=== PATIENT | female | born 1960 | race Caucasian/White ===

== ENCOUNTER 2019-09-14 12:31 | Outpatient (CLI) | payer MEDICARE, MEDICAID, SELFPAY ==
--- NOTE | ~2019-09-14 | MM_ITS ---
CORRECTED REPORT ORDER CHANGED TO MM screening mammo w miguelina [place]18/[place] [facility] [place] MM screening mammo BI w miguelina HISTORY: Screening mammogram TECHNIQUE: Craniocaudal and mediolateral oblique 3-D tomosynthesis images were obtained and synthetic 2-D images were generated. CAD analysis was submitted and interpreted. COMPARISON: 07/30/2016 BREAST PARENCHYMAL COMPOSITION: There are scattered areas of fibroglandular density. FINDINGS: There is no evidence of suspicious mass, calcification, or architectural distortion to suggest malignancy in either breast. There has been no suspicious interval change. IMPRESSION: 1. No mammographic evidence of malignancy. 2. Recommend routine screening mammography in one year. BI-RADS Category 1: Negative Reviewed, dictated and finalized at location A. ANDS TECHNICIAN MTDD
[2019-09-14 14:24] LABS: Thyroid Stimulating Hormone 17.62 uIU/mL (0.36-3.74)
== END 2019-09-14 12:32 | disposition home or self-care (01) ==
LOC: CHSIMG 12:33
PROVIDERS: PCP Nurse Practitioner Family; Visit Provider Nurse Practitioner Family
DX: Z12.31 Encounter for screening mammogram for malignant neoplasm of breast (principal); E03.9 Hypothyroidism, unspecified
CPT/HCPCS: 36415; 77063; 77067; 84443

== ENCOUNTER 2019-10-27 13:29 | Outpatient (CLI) | payer MEDICARE, MEDICAID, SELFPAY ==
--- NOTE | ~2019-10-27 | XR_ITS ---
EXAMINATION: XR chest 2V DATE: 10/27/2019 13:55 INDICATION: Cough. TECHNIQUE: Frontal and lateral views of the chest were obtained. COMPARISON: Chest 2 views 01/11/2018 FINDINGS: The chest demonstrates clear lungs without pneumonia, pleural effusion, or pneumothorax. Th e heart size is normal. Calcified right hilar lymph nodes are consistent with old granulomatous disea se. Surgical clips in the right upper quadrant are likely from cholecystectomy. IMPRESSION: 1. No acute cardiopulmonary disease. Reviewed, dictated and finalized at location A.
== END 2019-10-27 13:30 | disposition home or self-care (01) ==
LOC: CHSIMG 13:32
PROVIDERS: PCP Nurse Practitioner Family; Visit Provider Nurse Practitioner Family
DX: R05 Cough (principal)
CPT/HCPCS: 71046

== ENCOUNTER 2020-12-01 12:05 | Emergency (ER) | payer MEDICARE, SELFPAY ==
[2020-12-01 12:27] VITALS: BP 96/65; PULSE 98; RESP 20; TEMP 36.4; O2SAT 92
--- NOTE | 2020-12-01 13:28 | PC.NURSE ---
1300 went to pts room to go over her medications with her and she had left the room and has not returned
--- NOTE | 2020-12-02 04:22 | ED.GENADULT ---
HPI - General Adult General Chief complaint: Unspecified Stated complaint: high BP Related Data Allergies Allergy/AdvReac Type Severity Reaction Status Date / Time No Known Allergies Allergy Verified 12/03/20 08:59 [facility] Past Medical History Medical History COPD exacerbation Cough present for greater than 3 weeks Encounter for screening mammogram for malignant neoplasm of breast Hepatitis C Hypertension Hypothyroidism Nausea Nicotine dependence Suicide attempt by cutting of wrist Yeast infection Surgical History Surgical History History of cholecystectomy Previous back surgery Social History Social History Smoking packs per day: 1 Smoking cigarettes per day: 20.0 Years smoked: 42 Smoking pack-years: 42.00 Smoking status: Current every day smoker Alcohol intake: current Substance use: never Substance use type: does not use Other substance usage details: history of Gender identity (if verbalized by the patient): Female Course Vital Signs Vital signs: Vital Signs Temperature 36.4 C 12/01/20 12:27 Pulse Rate 98 12/01/20 12:27 Respiratory Rate 20 12/01/20 12:27 Blood Pressure 96/65 L 12/01/20 12:27 Pulse Oximetry 92 12/01/20 12:27 Temperature 36.4 C 12/01/20 12:27 Pulse Rate 98 12/01/20 12:27 Respiratory Rate 20 12/01/20 12:27 Blood Pressure 96/65 L 12/01/20 12:27 Pulse Oximetry 92 12/01/20 12:27 Medical Decision Making Vital Signs Vital Signs: Vital Signs Temperature 36.4 C 12/01/20 12:27 Pulse Rate 98 12/01/20 12:27 Respiratory Rate 20 12/01/20 12:27 Blood Pressure 96/65 L 12/01/20 12:27 Pulse Oximetry 92 12/01/20 12:27 Temperature 36.4 C 12/01/20 12:27 Pulse Rate 98 12/01/20 12:27 Respiratory Rate 20 12/01/20 12:27 Blood Pressure 96/65 L 12/01/20 12:27 Pulse Oximetry 92 12/01/20 12:27 Discharge Plan Discharge Patient Disposition: Left Without Being Seen Prescriptions: No Action albuterol sulfate 90 mcg/actuation HFA aerosol inhaler 1 puff INHALATION Q8H PRN (Reason: shortness of breath or wheezing) Qty: 8.5 RF: 2 amlodipine 10 mg tablet 10 mg PO DAILY Qty: 90 RF: 0 levothyroxine 125 mcg tablet 125 mcg PO DAILY Qty: 30 RF: 0 prazosin 2 mg capsule 2 mg PO QPM Qty: 30 RF: 1 quetiapine 100 mg tablet See Rx Instructions .ROUTE .COMPLEX Qty: 30 RF: 2 sertraline 50 mg tablet 50 mg PO DAILY Qty: 30 RF: 0 clobetasol 0.05 % cream 1 applic topical BID 28 Days Qty: 60 RF: 0 Follow-up/Referrals: Bette Wilder NP [Primary Care Provider] -
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
== END 2020-12-01 13:01 | disposition left against medical advice (07) ==
PROVIDERS: Emergency Provider Emergency Medicine; PCP Nurse Practitioner Family
DX: Z53.8 Procedure and treatment not carried out for other reasons (principal)
CPT/HCPCS: 99199

== ENCOUNTER 2020-12-01 18:09 | Emergency (ER) | payer MEDICARE, SELFPAY ==
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
== END 2020-12-01 18:30 | disposition left against medical advice (07) ==
PROVIDERS: Emergency Provider Emergency Medicine; PCP Nurse Practitioner Family
DX: Z53.8 Procedure and treatment not carried out for other reasons (principal)
CPT/HCPCS: 99199

== ENCOUNTER 2022-05-20 10:06 | Outpatient (CLI) | payer MEDICARE, MEDICAID, SELFPAY ==
--- NOTE | ~2022-05-20 | XR_ITS ---
EXAMINATION: XR lumbar spine 2-3V DATE: 05/20/2022 10:49 INDICATION: Low back pain TECHNIQUE: Anteroposterior and lateral views of the lumbar spine, and cone-down lateral view of the l umbosacral junction were obtained. COMPARISON: 12/11/2017 FINDINGS: Alignment is normal. Vertebral body heights are normal. Mild lower lumbar facet osteoarthritis. Sacru m and bilateral sacral iliac joints are unremarkable. Cholecystectomy clips in right upper quadrant. Lung bases are clear. Normal bowel gas pattern. IMPRESSION: 1. Mild lower lumbar facet osteoarthritis. Reviewed, dictated and finalized at location B.
[2022-05-20 10:27] LABS: Basophils Absolute Auto 0.09 K/mm3 (0.00-0.10); Basophils Percent Auto 1.1 % (0.0-1.0); Eosinophils Absolute Auto 0.76 K/mm3 (0.02-0.50); Eosinophils Percent Auto 9.3 % (1.0-6.0); Hematocrit 38.7 % (35.0-49.0); Hemoglobin 12.6 g/dL (12.0-15.0); Immature Granulocyte Absolute 0.05 K/mm3 (0.00-0.00); Immature Granulocyte Percent A 0.6 % (0.0-0.0); Lymphocytes Absolute Auto 2.99 K/mm3 (1.10-4.50); Lymphocytes Percent Auto 36.8 % (18.0-42.0); Mean Corpuscular HGB Conc 32.6 g/dL (32.0-36.0); Mean Corpuscular Hemoglobin 31.3 pg (27.0-31.0); Mean Platelet Volume 9.4 fl (9.2-11.8); Monocytes Absolute Auto 0.56 K/mm3 (0.10-0.90); Monocytes Percent Auto 6.9 % (2.0-11.0); Neutrophils Absolute Auto 3.7 K/mm3 (1.7-7.2); Neutrophils Percent Auto 45.3 % (50.0-70.0); Platelet Count Result 258 K/mm3 (150-420); Red Blood Count 4.03 M/mm3 (4.20-5.40); Red Cell Distribution Width 13.9 % (11.6-14.4); White Blood Count 8.1 K/mm3 (4.8-10.8)
[2022-05-20 10:50] LABS: Alanine Aminotransferase 54 U/L (14-59); Alkaline Phosphatase 64 U/L (46-116); Anion Gap 5 mmol/L (8-16); Aspartate Amino Transferase 38 U/L (15-37); Bilirubin,Total 0.3 mg/dL (0.00-1.00); Blood Urea Nitrogen 21 mg/dL (7-18); Calcium 9.5 mg/dL (8.5-10.1); Carbon Dioxide 34 mmol/L (21-32); Chloride 100 mmol/L (98-108); Cholesterol 369 mg/dL (0-200); Estimated Glomerular Filt Rate 39; Free T4 Free Thyroxine 0.28 ng/dL (0.76-1.46); Glucose 118 mg/dL (70-99); HDL Direct 54 mg/dL (40-60); LDL Cholesterol Calculated 254 mg/dL (<130); Osmolality Calculated 292 mOsm/kg (285-295); Potassium 4.2 mmol/L (3.5-5.1); Sodium 139 mmol/L (136-145); Total Protein 7.4 g/dL (6.4-8.2); Triglycerides 305 mg/dL (0-150)
[2022-05-20 11:11] LABS: Thyroid Stimulating Hormone 84.18 uIU/mL (0.36-3.74)
== END 2022-05-20 10:07 | disposition home or self-care (01) ==
LOC: CHSLAB 10:10
PROVIDERS: PCP Nurse Practitioner Family; Visit Provider Nurse Practitioner Family
DX: M54.50 Low back pain, unspecified (principal); I10 Essential (primary) hypertension; E03.9 Hypothyroidism, unspecified; E78.5 Hyperlipidemia, unspecified
CPT/HCPCS: 36415; 72100; 80053; 80061; 84439; 84443; 85025

== ENCOUNTER 2022-10-19 14:04 | Outpatient (CLI) | payer MEDICARE, MEDICAID, SELFPAY ==
--- NOTE | ~2022-10-19 | XR_ITS ---
EXAM: XR elbow LT 2V DATE: 10/19/2022 14:26 HISTORY: pain laterally x 3mo dixie with lifting objects . COMPARISON: None available. FINDINGS: Normal mineralization. No fracture or dislocation. No lytic or blastic lesion. Joint space s and physes are maintained. No erosion or periosteal change. Soft tissues within normal limits. IMPRESSION: Normal right elbow radiograph findings. Reviewed, dictated and finalized at location K.
== END 2022-10-19 14:05 | disposition home or self-care (01) ==
LOC: CHSIMG 14:06
PROVIDERS: PCP Family Medicine; Visit Provider Family Medicine
DX: M25.522 Pain in left elbow (principal)
CPT/HCPCS: 73070

== ENCOUNTER 2022-11-17 12:54 | Outpatient (RCR) | payer MEDICARE, MEDICAID, SELFPAY | END 2023-02-15 23:59 | disposition home or self-care (01) | LOC: CHSPT 12:54 | PROVIDERS: PCP Nurse Practitioner Family; Visit Provider Nurse Practitioner Family | DX: M54.50 Low back pain, unspecified (principal); M25.522 Pain in left elbow | CPT/HCPCS: 99199 ==

== ENCOUNTER 2023-03-15 10:39 | Outpatient (CLI) | payer MEDICARE, MEDICAID, SELFPAY ==
--- NOTE | ~2023-03-15 | XR_ITS ---
XR heel RT min 2V DATE: 03/15/2023 11:05 INDICATION: Right heel pain for one month TECHNIQUE: Axial and lateral views COMPARISON: None FINDINGS: There is mild plantar and moderate posterior calcaneal enthesopathy, without erosive change or periostitis. No fracture or dislocation or bone destruction. IMPRESSION: Plantar and posterior calcaneal enthesopathy Reviewed, dictated and finalized at location B.
--- NOTE | ~2023-03-15 | XR_ITS ---
XR lumbar spine 2-3V DATE: 03/15/2023 11:06 INDICATION: Chronic low back pain TECHNIQUE: AP, lateral, cone-down lateral lumbosacral views COMPARISON: 05/20/2022 lumbar spine FINDINGS: There is diffuse osteopenia. Normal alignment of the lumbar spine. No fracture or bone destruction or spondylolisthesis. The inclu ded lower thoracic and lumbar pedicles are intact. There is degenerative spurring of the lower thorac ic spine. There is minimal degenerative spurring of the lumbar spine. Lumbar interspaces are well pre served. Mild loss of height at L5-S1 interspace. The sacroiliac joints are intact. Status post cholecystectomy. IMPRESSION: Degenerative spurring of lower thoracic spine Minimal degenerative spurring of the lumbar spine and mild loss of height at L5-S1 interspace No significant change since 05/20/2022 Reviewed, dictated and finalized at location B. IMPRESSION: Degenerative spurring of lower thoracic spine Minimal degenerative spurring of the lumbar spine and mild loss of height at L5 -S1 interspace No significant change since 05/20/2022
== END 2023-03-15 10:40 | disposition home or self-care (01) ==
LOC: CHSIMG 10:42
PROVIDERS: PCP Nurse Practitioner Family; Visit Provider Nurse Practitioner Family
DX: M77.31 Calcaneal spur, right foot (principal); M51.34 Other intervertebral disc degeneration, thoracic region; M51.36 Other intervertebral disc degeneration, lumbar region; R29.890 Loss of height
CPT/HCPCS: 72100; 73650

== ENCOUNTER 2023-10-15 11:55 | Outpatient (CLI) | payer MEDICARE, MEDICAID, SELFPAY ==
--- NOTE | ~2023-10-15 | DEXA_ITS ---
Bone Density Report Name: DENA BRUNO Age: 63 Sex: Female Ethnicity: White Date of : 1960 Indication: hyperparathyroidism; height loss; prior fracture; Referring Provider: Bette Wilder Study: Bone densitometry was performed. Exam Date: October 15, 2023 Accession number: [id number] Bone Density: Region BMD T-score Z-score Classification AP Spine(L1-L4) 0.944 -0.9 0.7 Normal Femoral Neck (Left) 0.682 -1.5 -0.1 Osteopenia Total Hip (Left) 0.802 -1.1 0.0 Osteopenia Femoral Neck (Right) 0.681 -1.5 -0.1 Osteopenia Total Hip (Right) 0.803 -1.1 0.0 Osteopenia Femoral Neck Mean 0.681 -1.5 -0.1 Osteopenia Total Hip Mean 0.802 -1.1 0.0 Osteopenia World Health Organization criteria for BMD impression classify patients as: Normal (T-score at or above -1.0), Osteopenia (T-score between -1.0 and -2.5), or Osteoporosis (T-score at or below -2.5). 10-year Fracture Risk: FRAX not reported because: Prior hip or vertebral fracture Clinical Information Provided by Patient: Have had a previous hip or vertebral fracture Has had a low trauma fracture Smokes Has the following medical conditions: Hyperparathyroidism Patient maximum height was 63 Menopause Age: 50 No regular weight bearing exercise Onset of menses at age 12 Number of children 5 Impression: The patient has low bone mass, based on the Left Femoral Neck T-score. The patient has risk factors, including: smoking, previous fracture. Discussion: INCREASED RISK OF FRACTURE DUE TO HISTORY OF FRACTURE. The patient's previous fracture puts the patient at high risk of a future fracture. In untreated patients, the risk of osteoporotic fracture increases approximately two-fold for each 1.0 SD decrease in T-score. Low bone density is not the only risk factor for fracture; also consider factors such as patient's age, frailty or poor health, risk of falling, risk of injury, previous osteoporotic fracture, family history of osteoporosis, cigarette smoking, low body weight, etc. Not everyone with a low trauma fracture has osteoporosis; osteomalacia and other metabolic bone disorders should also be considered. Patients who have osteoporosis should be evaluated for specific diseases and conditions (secondary causes) that may cause or contribute to bone loss and fracture risk. National Osteoporosis Foundation (NOF) recommends pharmacologic intervention for patients with a prior hip or vertebral fracture regardless of BMD T-score. The patient should follow a healthful lifestyle (good nutrition with adequate calcium and vitamin D, and appropriate weight-bearing exercise). Follow-Up: Consider a repeat BMD and Vertebral Fracture Assessment (VFA) exam in 2 years or sooner if medically necessary, to reassess this patient's status. Reported by: Dr. Tramaine Roger on 10/15/2023 1:28:00 PM.
--- NOTE | ~2023-10-15 | CT_ITS ---
EXAMINATION: CT lung screening DATE: 10/15/2023 12:35 INDICATION: History of tobacco dependence. TECHNIQUE: Computed tomography (CT) of the chest was performed without intravenous contrast. The dose -length product was 92.61 mGy-cm. Automated exposure control and iterative reconstruction technique w ere employed. COMPARISON: CT dated 04/07/2017 FINDINGS: Heart size normal. No significant pleural or pericardial effusion. There are calcified gran ulomas of the mediastinum, liver and spleen. No thoracic lymphadenopathy. No endobronchial lesions. S table 3 mm right lower lobe nodule. There are a few small scattered 2 mm nodules in the upper lobes. No focal consolidation. No endobronchial lesions. No acute osseous abnormality. Mild thoracic spondyl osis. IMPRESSION: 1. Lung-RADS category 2: Benign appearance or behavior. Continue annual screening with noncontrast lo w-dose chest CT in 12 months. Reviewed, dictated and finalized at location B. IMPRESSION: 1. Lung-RADS category 2: Benign appearance or behavior. Continue annual screeni ng with noncontrast low-dose chest CT in 12 months.
--- NOTE | ~2023-10-15 | MM_ITS ---
EXAMINATION: MM screening crow BI w miguelina HISTORY: Screening mammogram TECHNIQUE: Craniocaudal and mediolateral oblique 3-D tomosynthesis images were obtained and synthetic 2-D images were generated. CAD analysis was submitted and interpreted. COMPARISON: September 14, 2019 bilateral screening mammogram BREAST PARENCHYMAL COMPOSITION: There are scattered areas of fibroglandular density. FINDINGS: There is no evidence of suspicious mass, calcification, or architectural distortion to sugg est malignancy in either breast. There has been no suspicious interval change. IMPRESSION: 1. No mammographic evidence of malignancy. 2. Recommend routine screening mammography in one year. BI-RADS Category 1: Negative Reviewed, dictated and finalized at location A.
== END 2023-10-15 11:56 | disposition home or self-care (01) ==
PROVIDERS: PCP Nurse Practitioner Family; Visit Provider Nurse Practitioner Family
DX: Z12.31 Encounter for screening mammogram for malignant neoplasm of breast (principal); Z78.0 Asymptomatic menopausal state; Z87.891 Personal history of nicotine dependence; M85.89 Other specified disorders of bone density and structure, multiple sites
CPT/HCPCS: 71271; 77063; 77067; 77080

== ENCOUNTER 2024-02-02 13:22 | Emergency (ER) | payer MEDICARE, MEDICAID, SELFPAY ==
[2024-02-02 13:24] VITALS: BP 168/91; PULSE 86; RESP 16; TEMP 36.9; O2SAT 96
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
[2024-02-02] MEDS: TETANUS,DIPHTHERIA,AC PERTUSSIS ADULT 0.5 ML (ADACEL) IM (14:31)
[2024-02-02 14:40] VITALS: BP 163/92; PULSE 70; RESP 16; O2SAT 94
== END 2024-02-02 14:40 | disposition home or self-care (01) ==
PROVIDERS: Emergency Provider Internal Medicine Critical Care Medicine; PCP Nurse Practitioner Family
DX: S61.032A Puncture wound without foreign body of left thumb without damage to nail, initial encounter (principal); I10 Essential (primary) hypertension; E03.9 Hypothyroidism, unspecified; E78.5 Hyperlipidemia, unspecified; J44.9 Chronic obstructive pulmonary disease, unspecified; F17.210 Nicotine dependence, cigarettes, uncomplicated; Z23 Encounter for immunization; W45.0XXA Nail entering through skin, initial encounter
CPT/HCPCS: 90471; 90715; 99282

== ENCOUNTER 2024-02-02 14:46 | Outpatient (CLI) | payer MEDICARE, MEDICAID, SELFPAY ==
[2024-02-02 15:02] LABS: Basophils Absolute Auto 0.08 K/mm3 (0.00-0.10); Basophils Percent Auto 1.1 % (0.0-1.0); Eosinophils Absolute Auto 0.55 K/mm3 (0.02-0.50); Eosinophils Percent Auto 7.6 % (1.0-6.0); Hematocrit 43.8 % (35.0-49.0); Hemoglobin 14.1 g/dL (12.0-15.0); Immature Granulocyte Absolute 0.02 K/mm3 (0.00-0.00); Immature Granulocyte Percent A 0.3 % (0.0-0.0); Lymphocytes Absolute Auto 2.18 K/mm3 (1.10-4.50); Lymphocytes Percent Auto 30.2 % (18.0-42.0); Mean Corpuscular HGB Conc 32.2 g/dL (32-36); Mean Corpuscular Hemoglobin 27.9 pg (27.0-31.0); Mean Corpuscular Volume 86.6 fL (78.0-102.0); Mean Platelet Volume 9.3 fl (9.2-11.8); Monocytes Percent Auto 8.3 % (2.0-11.0); Neutrophils Absolute Auto 3.78 K/mm3 (1.70-7.20); Neutrophils Percent Auto 52.5 % (50.0-70.0); Platelet Count Result 272 K/mm3 (150-420); Red Blood Count 5.06 M/mm3 (4.20-5.40); Red Cell Distribution Width 13.7 % (11.6-14.4); White Blood Count 7.2 K/mm3 (4.8-10.8)
[2024-02-02 15:15] LABS: Hemoglobin A1C 5.6 % (<5.7)
[2024-02-02 15:47] LABS: Alanine Aminotransferase 63 U/L (14-59); Albumin Level 4.1 g/dL (3.4-5.0); Alkaline Phosphatase 101 U/L (46-116); Anion Gap 4 mmol/L (4-12); Aspartate Amino Transferase 44 U/L (15-37); Bilirubin,Total 0.6 mg/dL (0.00-1.00); Blood Urea Nitrogen 12 mg/dL (7-18); Calcium 9.5 mg/dL (8.5-10.1); Carbon Dioxide 34 mmol/L (21-32); Chloride 99 mmol/L (98-108); Cholesterol 292 mg/dL (0-200); Estimated Glomerular Filt Rate > 60; Glucose 93 mg/dL (70-99); HDL Direct 50 mg/dL (40-60); LDL Cholesterol Calculated 193 mg/dL (<130); Osmolality Calculated 283 mOsm/kg (285-295); Potassium 4.3 mmol/L (3.5-5.1); Sodium 137 mmol/L (136-145); Thyroid Stimulating Hormone 52.33 uIU/mL (0.36-3.74); Total Protein 7.2 g/dL (6.4-8.2); Triglycerides 246 mg/dL (0-150)
== END 2024-02-02 14:47 | disposition home or self-care (01) ==
LOC: CHSLAB 14:48
PROVIDERS: PCP Nurse Practitioner Family; Visit Provider Nurse Practitioner Family
DX: Z00.00 Encounter for general adult medical examination without abnormal findings (principal); E11.9 Type 2 diabetes mellitus without complications; I10 Essential (primary) hypertension
CPT/HCPCS: 36415; 80053; 80061; 83036; 84443; 85025

== ENCOUNTER 2024-02-09 14:44 | Outpatient (CLI) | payer MEDICARE, MEDICAID, SELFPAY ==
--- NOTE | ~2024-02-09 | XR_ITS ---
XR wrist LT 2V Ordering provider: Zaid Thapa APRN History: . M25.532 - Pain in left wrist . Comparison: None. FINDINGS: BONES: No acute fracture or dislocation. No definite scaphoid fracture. JOINT SPACES: Well maintained. SOFT TISSUES: Normal. IMPRESSION: No acute osseous abnormality left wrist. Reviewed, dictated and finalized at location A.
[2024-02-11 03:59] LABS: Hepatitis B Surface Antigen NON-REACTIVE (NON-REACTIVE); Hepatitis C Virus Antibody REACTIVE (NON-REACTIVE)
[2024-02-11 05:08] LABS: Hepatitis A Antibody IgM NON-REACTIVE (NON-REACTIVE); Hepatitis B Core Antibody NON-REACTIVE (NON-REACTIVE)
[2024-02-16 20:36] LABS: Hepatitis C Additional Testing YES
== END 2024-02-09 14:45 | disposition home or self-care (01) ==
PROVIDERS: PCP Nurse Practitioner Family; Visit Provider Nurse Practitioner Family
DX: B19.20 Unspecified viral hepatitis C without hepatic coma (principal); M25.532 Pain in left wrist
CPT/HCPCS: 36415; 73100; 80074; 87522

== ENCOUNTER 2024-02-24 14:00 | Outpatient (CLI) | payer MEDICARE, MEDICAID, SELFPAY ==
--- NOTE | ~2024-02-24 | CT_ITS ---
EXAMINATION: CT brain wo con DATE: 02/24/2024 14:38 INDICATION: Dizziness and giddiness. TECHNIQUE: Computed tomography (CT) of the head was performed without intravenous contrast. The mA wa s adjusted according to patient size. Iterative reconstruction technique was employed. The dose-lengt h product was 681.00 mGy-cm. COMPARISON: None FINDINGS: There is no intracranial hemorrhage, acute infarction, or abnormal intracranial mass lesion . The ventricles are normal in size. The orbits are normal. There is mild mucosal thickening in the p aranasal sinuses. The mastoid air cells are normal. There is a 4 mm subcutaneous foreign body in ante rosuperior scalp. IMPRESSION: 1. Normal brain. Reviewed, dictated and finalized at location A. IMPRESSION: 1. Normal brain.
[2024-02-24 15:10] LABS: Alanine Aminotransferase 45 U/L (14-59); Albumin Level 4.2 g/dL (3.4-5.0); Alkaline Phosphatase 129 U/L (46-116); Anion Gap 5 mmol/L (4-12); Aspartate Amino Transferase 35 U/L (15-37); Bilirubin,Total 0.4 mg/dL (0.00-1.00); Blood Urea Nitrogen 17 mg/dL (7-18); Calcium 9.6 mg/dL (8.5-10.1); Carbon Dioxide 35 mmol/L (21-32); Chloride 101 mmol/L (98-108); Estimated Glomerular Filt Rate 54; Glucose 109 mg/dL (70-99); Osmolality Calculated 294 mOsm/kg (285-295); Potassium 4.6 mmol/L (3.5-5.1); Sodium 141 mmol/L (136-145); Total Protein 7.5 g/dL (6.4-8.2)
== END 2024-02-24 14:01 | disposition home or self-care (01) ==
PROVIDERS: PCP Nurse Practitioner Family; Visit Provider Nurse Practitioner Family
DX: E03.9 Hypothyroidism, unspecified (principal); R74.8 Abnormal levels of other serum enzymes; H53.8 Other visual disturbances; R42 Dizziness and giddiness
CPT/HCPCS: 36415; 70450; 80053; 84443

== ENCOUNTER 2024-03-08 14:24 | Outpatient (RCR) | payer MEDICARE, MEDICAID, SELFPAY ==
--- NOTE | 2024-03-08 15:55 | PTOPEVAL1 ---
Assessment and note entered by Jack Castro Evaluation Information Assessment Status Evaluation ICD-10 Condition Codes (PT) Dizziness & Giddiness R42,BPPV H81.12 Onset 11/17/23 Subjective Information Pt. reports she started noticing dizziness around November. She reports that she noticed a gradual onset of dizziness while at the store with her daughter . She reports that it got more intense throughout the day and started noticing the room spinning. She reports that symptoms now happen with bending forward or rolling in bed. She does not recall which side cause her dizziness when rolling in bed . She reports that the dizzy spells are not daily . Her last episode was a couple days ago while making dinner. She reports that she is fearful in the community in case she has an episode. She states that she no longer drives. She reports that her goal is to get rid of her dizziness. Reported Pain Level Pain Score 0: Self Report Assessment PT Clinical Summary Pt. enters the clinic due to developed dizziness in recent months. She demonstrates reports of brief dizziness with the [place]-Halpike Maneuver, but no nystagmus. She is provided instruction regarding the Tc Maneuver and demonstrates independence with performing the maneuver. She does have several other factors that could be leading to dizziness, and pt. informed to hold off on further treatment until see under goes her doppler. She will be discharged from our care at this time. Plan of Care Treatment Frequency and D/C from PT to an independent HEP. Duration These treatments will address the objective and functional deficits as defined above. The patient will be advanced safely and appropriately in order for the patient to progress towards his/her prior level of function. Additional exercises will be introduced and as well as a comprehensive home exercise program upon discharge, if needed, ?to ensure carryover of functional gains achieved in the clinic. This treatment plan has been reviewed and agreement upon by the patient.
== END 2024-03-08 16:00 | disposition home or self-care (01) ==
LOC: CHSPT 14:24
PROVIDERS: PCP Family Medicine; Visit Provider Nurse Practitioner Family
DX: H81.12 Benign paroxysmal vertigo, left ear (principal)
CPT/HCPCS: 95992; 97161

== ENCOUNTER 2024-03-15 12:35 | Outpatient (CLI) | payer MEDICARE, MEDICAID, SELFPAY ==
--- NOTE | ~2024-03-15 | US_ITS ---
EXAMINATION: US carotid duplex BI DATE: 03/15/2024 13:15 INDICATION: Dizziness TECHNIQUE: Grayscale, color Doppler, and pulsed Doppler images of the cervical carotid arteries were obtained. The degree of vessel stenosis is placed in one of the following categories: normal, <50%, 5 0-69%, >=70% but less than near-occlusion, near-occlusion, or total occlusion. Note that percent sten osis relative to normal distal artery lumen diameter is indirectly measured from velocity measurement s as described by Kevin, et al. Radiology 2003; 229:340-346. Notes: Normal: Peak systolic velocity <125 centimeters/sec and no plaque <50%. Peak systolic velocity <125 ( EDV <40; ICA/CCA PSV ratio <2.0; used these factors only a tandem lesions or low cardiac output or co ntralateral disease) 50-69 %: PSV 125-230 (EDV 40-100; ratio 2-4) >= 70% but less than near occlusion: PSV greater than 230 (EDV > 100; ratio> 4.0) Near Occlusion: PSV that is variable; markedly narrowed lumen Occlusion: Absent flow on color/spectral Doppler and no lumen on calhoun scale. COMPARISON: None. FINDINGS: RIGHT: The right common carotid artery (CCA) peak systolic velocity (PSV) is 59 cm/s. The right internal car otid artery (ICA) PSV is 85 cm/s. The right ICA end-diastolic velocity (EDV) is 35 cm/s. The right IC A/CCA PSV ratio is 1.4. The external carotid artery (ECA) PSV is 78 cm/s. There is antegrade flow in the right vertebral artery. LEFT: The left CCA PSV is 77 cm/s. The left ICA PSV is 125 cm/s. The left ICA EDV is 52 cm/s. The left ICA/ CCA PSV ratio is 1.6. The ECA PSV is 78 cm/s. There is antegrade flow in the left vertebral artery. IMPRESSION: 1. Less than 50% stenosis in the right internal carotid artery by sonographic criteria. 2. Less than 50% stenosis in the left internal carotid artery by sonographic criteria. Reviewed, dictated and finalized at location B. IMPRESSION: 1. Less than 50% stenosis in the right internal carotid artery by sonographic [place]. 2. Less than 50% stenosis in the left internal carotid artery by sonographic martha hoffman.
== END 2024-03-15 12:36 | disposition home or self-care (01) ==
PROVIDERS: PCP Nurse Practitioner Family; Visit Provider Nurse Practitioner Family
DX: H53.8 Other visual disturbances (principal); R42 Dizziness and giddiness; I65.23 Occlusion and stenosis of bilateral carotid arteries
CPT/HCPCS: 93880

== ENCOUNTER 2024-04-11 15:04 | Outpatient (CLI) | payer MEDICARE, MEDICAID, SELFPAY ==
[2024-04-11 16:25] LABS: Thyroid Stimulating Hormone 19.48 uIU/mL (0.36-3.74)
== END 2024-04-11 15:05 | disposition home or self-care (01) ==
LOC: CHSLAB 15:05
PROVIDERS: PCP Nurse Practitioner Family; Visit Provider Nurse Practitioner Family
DX: E03.9 Hypothyroidism, unspecified (principal)
CPT/HCPCS: 36415; 84443

== ENCOUNTER 2024-04-12 12:21 | Outpatient (CLI) | payer MEDICARE, MEDICAID, SELFPAY ==
[2024-04-13 09:38] LABS: Hepatitis C Virus Antibody REACTIVE (NON-REACTIVE)
[2024-04-17 11:28] LABS: Hepatitis C Additional Testing YES
[2024-04-17 11:29] LABS: Hepatitis C RNA, Quant PCR HCV RNA PCR
== END 2024-04-12 12:22 | disposition home or self-care (01) ==
PROVIDERS: PCP Nurse Practitioner Family; Visit Provider Nurse Practitioner Family
DX: R76.8 Other specified abnormal immunological findings in serum (principal)
CPT/HCPCS: 36415; 86803; 87522